=== PATIENT | female | born 1985 | race Caucasian/White ===

== ENCOUNTER 2017-07-29 21:39 | Emergency (ER) | payer OTHER, SELFPAY ==
[2017-07-29] MEDS ORDERED: Magnesium Sulfate 2 GM/100 ML BAG ONE (22:07)
--- NOTE | 2017-07-29 22:28 | RAD ---
PORTABLE AP CHEST X-RAY 07/29/17 HISTORY: Dyspnea. Difficulty breathing. History of asthma. COMPARISON: None available. FINDINGS: Cardiac silhouette and pulmonary vasculature are within normal limits. There is bibasilar atelectasis , The lungs are otherwise clear. Osseous structures are intact. IMPRESSION: Bibasilar atelectasis, but there is otherwise no acute cardiopulmonary process. POS: [facility]
[2017-07-29 22:34] LABS: BHCG - Serum Negative (NEGATIVE); Pregs Control Background? CLEAR/WHITE (CLR/WHITE); Pregs Control Bar Appear? YES (CONTROL BAR)
[2017-07-29] MEDS ORDERED: Ketorolac Tromethamine 30 MG/ML VIAL ONE (22:37)
== END 2017-07-30 00:28 | disposition home or self-care (01) ==
LOC: ERS 21:39
DX: J45.901 Unspecified asthma with (acute) exacerbation; F41.9 Anxiety disorder, unspecified; G43.909 Migraine, unspecified, not intractable, without status migrainosus; F32.9 Major depressive disorder, single episode, unspecified; J45.909 Unspecified asthma, uncomplicated; Z79.899 Other long term (current) drug therapy
CPT/HCPCS: 71045; 84703; 94760; 96361; 96365; 96375; J1885; J3475